=== PATIENT | female | born 1975 | race Caucasian/White ===

== ENCOUNTER 2016-09-23 17:26 | Emergency (ER) | payer OTHER ==
[2016-09-23] MEDS ORDERED: Sodium Phosphate,Monobasic/Sodium Phosphate,Dibasic Enema 133 ML Bottle RECTAL ONE (18:09)
[2016-09-23] MEDS ORDERED: Magnesium Hydroxide 400 MG/5 ML Susp 30 ML Cup PO ONE (18:23)
[2016-09-23 18:26] LABS: CHLORIDE,CL 100 mmol/L (98-107); SODIUM,NA 138 mmol/L (136-145)
[2016-09-23] MEDS ORDERED: HYDROmorphone 1 MG/ML Syringe IM ONE (18:57)
[2016-09-23] MEDS ORDERED: Take Home: Acetaminophen/HYDROcodone 325-10 MG, 5 Tab Pack PO ONE (20:23)
[2016-09-23] MEDS ORDERED: Ondansetron 4 MG Tab.DIS PO ONE (20:23)
--- NOTE | 2016-09-24 02:48 | ER ---
Date of Service: 09/23/2016 SUBJECTIVE: Adelia presents to the emergency room with complaints of diffuse abdominal pain localizing in the left lower quadrant. The patient states that she has had intermittent constipation in the past. The patient states that her last bowel movement was approximately last . She states that she did take Dulcolax but states that she has been continuing to have abdominal pain, which she feels is due to obstipation. The patient states that she is somewhat nauseated. She did take Zofran ODT at home, which did help with her symptoms. PAST MEDICAL HISTORY: None. MEDICATIONS: Nortriptyline. ALLERGIES: NKDA. REVIEW OF SYSTEMS: She states that she is experiencing some fever and chills and sweats today. She denies any melena, hematochezia, or hematemesis. She denies any chest pain or shortness of breath. PHYSICAL EXAMINATION: General: This is a 40-year-old female patient, in no acute distress. Vital signs: Blood pressure is 130/99, heart rate is 83, temperature is 36.9, respiratory rate is 18, and O2 saturations 97%. Skin: Warm, pink, and dry. HEENT. Head is normocephalic and atraumatic. Eyes, PERRLA. Extraocular movements are intact. Mouth, oral mucosa is moist. Lungs: Clear to auscultation. Heart: Regular rate and rhythm. Abdomen: Soft, diffusely tender. Her bowel sounds are normoactive. There are no masses noted. There is no hepatosplenomegaly noted. Extremities: Without edema. Neurologic: She is alert, oriented, and answers all questions appropriately. LABORATORY DATA: WBC is 8.5, hemoglobin is 14.1, and platelets are 351. Coags: PT is 10.6 and INR is 0.9. Chemistry: Sodium is 138, potassium is 3.6, chloride is 100, bicarb is 28, BUN is 13, and creatinine is 0.9. GFR is greater than 60. Glucose is 93, calcium is 9.4, and corrected calcium is 8.92. Total bilirubin is 0.5, AST is 11, ALT is 21, and alkaline phosphatase is 51. CRP is less than 0.2. Total protein is 8.7. Albumin is 4.6. Urinalysis reveals specific gravity of 1.015, negative for protein and glucose. She did have 80 ketones, trace of occult blood, and trace of leukocyte esterase. RADIOGRAPHIC DATA: Flat and upright abdominal series was obtained. She did have evidence of significant amount of stool particularly at the splenic flexure. No air-fluid levels or signs of obstruction noted. EMERGENCY ROOM COURSE: The patient was given Dilaudid 1 mg IM with excellent pain control. She was also given Zofran 4 mg via orally disintegrating tablet. She was also given in Fleet Enema with very small result. She was subsequently given a soapsuds enema with a large result. She stated that her abdominal pain was resolved at time of discharge. ASSESSMENT: Constipation. PLAN: The patient will be discharged. [place] 10/325 with instructions to take 1 every 6 hours as needed for pain. Zofran ODT 4 mg every 8 hours as needed for nausea. She was given milk of magnesia and instructed to take 30 mL p.o. every 6 to 8 hours. Also, was advised to start MiraLAX. All questions were answered. MWK: 09/23/2016 21:06:57 MODL: 09/24/2016 02:44:14 /[id number]
== END 2016-09-23 21:05 | disposition home or self-care (01) ==
LOC: VM.ED 17:26
DX: K59.00 Constipation, unspecified (principal); H18.822 Corneal disorder due to contact lens, left eye
CPT/HCPCS: 36415; 74020; 80053; 81001; 81025; 85025; 85610; 86140; 96372; 99283; 99284; A9270; J1170

== ENCOUNTER 2017-07-01 12:52 | Emergency (ER) | payer BC, OTHER ==
[2017-07-01] MEDS ORDERED: Prochlorperazine 10 MG/2 ML SDV IM ONE (13:21)
[2017-07-01] MEDS ORDERED: diphenhydrAMINE 50 MG/ML SDV IM ONE (13:22)
--- NOTE | 2017-07-01 14:08 | EDM.PDOC ---
ED HPI GENERAL MEDICAL PROBLEM - General Chief Complaint: Headache Stated Complaint: flu Time Seen by Provider: 07/01/17 13:00 Source of Information: Reports: Patient History Limitations: Reports: No Limitations - History of Present Illness INITIAL COMMENTS - FREE TEXT/NARRATIVE: Pt. presents to ER with complaints of headache, chills, body aches, and sore throat. Pt. states that she has been experiencing this for 2-3 days. She states that she has a history of migraine headaches and states that the discomfort is similar to what she has experienced in the past. She is mildly nauseated. No vomiting. Denies any head trauma. She denies any midline neck discomfort. Onset: Today Onset Date: 06/30/17 Duration: Constant Location: Reports: Head Quality: Reports: Ache Severity: Moderate Improves with: Reports: Rest Worsens with: Reports: Movement Context: Reports: Trauma Treatments [employer]ING: Reports: NSAIDS Headache Pain Score (Numeric/FACES): 7 Throat Pain Score (Numeric/FACES): 5 - Related Data Allergies Allergy/AdvReac Type Severity Reaction Status Date / Time No Known Allergies Allergy Verified 03/23/17 13:33 Home Meds: Home Meds Magnesium Hydroxide [Milk of Magnesia] 30 ml PO Q6H #3 cup 09/23/16 [Rx] Nortriptyline 20 mg PO BEDTIME 09/23/16 [History] Past Medical History Neurological History: Reports: Migraines Social & Family History - Tobacco Use Smoking Status *Q: Never Smoker - Recreational Drug Use Recreational Drug Use: No ED ROS GENERAL - Review of Systems Review Of Systems: See Below Constitutional: Reports: No Symptoms HEENT: Reports: No Symptoms Respiratory: Reports: No Symptoms Cardiovascular: Reports: No Symptoms Endocrine: Reports: No Symptoms GI/Abdominal: Reports: Nausea : Reports: No Symptoms Musculoskeletal: Reports: No Symptoms Skin: Reports: No Symptoms Neurological: Reports: Headache Psychiatric: Reports: No Symptoms Hematologic/Lymphatic: Reports: No Symptoms Immunologic: Reports: No Symptoms ED EXAM, GENERAL - Physical Exam Exam: See Below Exam Limited By: No Limitations General Appearance: Alert, WD/WN, No Apparent Distress Eye Exam: Bilateral Eye: EOMI, Normal Fundi, Normal Inspection, PERRL Ears: Normal External Exam, Normal Canal, Hearing Grossly Normal, Normal TMs Ear Exam: Bilateral Ear: Auricle Normal, Canal Normal, TM normal Nose: Normal Inspection, Normal Mucosa, No Blood Throat/Mouth: Normal Inspection, Normal Lips, Normal Teeth, Normal Gums, Normal Oropharynx, Normal Voice, No Airway Compromise Head: Atraumatic, Normocephalic Neck: Normal Inspection, Supple, Non-Tender, Full Range of Motion Respiratory/Chest: No Respiratory Distress, Lungs Clear, Normal Breath Sounds, No Accessory Muscle Use, Chest Non-Tender Cardiovascular: Normal Peripheral Pulses, Regular Rate, Rhythm, No Edema, No Gallop, No JVD, No Murmur, No Rub GI/Abdominal: Normal Bowel Sounds, Soft, Non-Tender, No Organomegaly, No Distention, No Abnormal Bruit, No Mass (Female) Exam: Deferred Rectal (Female) Exam: Deferred Back Exam: Normal Inspection, Full Range of Motion, NT Extremities: Normal Inspection, Normal Range of Motion, Non-Tender, Normal Capillary Refill, No Pedal Edema Neurological: Alert, Oriented, CN II-XII Intact, Normal Cognition, Normal Gait, Normal Reflexes, No Motor/Sensory Deficits Psychiatric: Normal Affect, Normal Mood Skin Exam: Warm, Dry, Intact, Normal Color, No Rash Lymphatic: No Adenopathy Course - Vital Signs Last Recorded V/S: Last Vital Signs Temp 36.6 C 07/01/17 12:55 Pulse 75 07/01/17 12:55 Resp 16 07/01/17 12:55 BP 134/76 07/01/17 12:55 Pulse Ox - Orders/Labs/Meds Orders: Active Orders 24 hr Category Date Time Status CULTURE STREP A CONFIRMATION [] Stat Lab 07/01/17 13:21 Results STREP SCRN A RAPID W CULT CONF [] Stat Lab 07/01/17 13:21 Results Meds: Medications Discontinued Medications Generic Name Dose Route Start Last Admin Trade Name Freq PRN Reason Stop Dose Admin Diphenhydramine HCl 50 mg 07/01/17 13:22 07/01/17 13:36 Benadryl IM 07/01/17 13:23 50 mg ONETIME ONE Administration Prochlorperazine Edisylate 10 mg 07/01/17 13:21 07/01/17 13:38 Compazine IM 07/01/17 13:22 10 mg ONETIME ONE Administration Departure - Departure Time of Disposition: 14:18 Disposition: Home, Self-Care 01 Clinical Impression: Migraine - Discharge Information Instructions: Migraine Headache, [id number] Referrals: PCP,Not In Area [Primary Care Provider] - Forms: ED Department Discharge Additional Instructions: Continue with Zomig and Reglan as needed for migraines. Off work today and tomorrow. Follow-up in clinic or return to ER if you have worsening of your symptoms. - My Orders Last 24 Hours: My Active Orders 07/01/17 13:21 CULTURE STREP A CONFIRMATION [RM] Stat STREP SCRN A RAPID W CULT CONF [RM] Stat - Assessment/Plan Last 24 Hours: My Active Orders 07/01/17 13:21 CULTURE STREP A CONFIRMATION [RM] Stat STREP SCRN A RAPID W CULT CONF [RM] Stat
== END 2017-07-01 14:18 | disposition home or self-care (01) ==
LOC: VM.ED 12:52
DX: G43.909 Migraine, unspecified, not intractable, without status migrainosus (principal)
CPT/HCPCS: 87081; 87880; 96372; 99284; J0780; J1200